=== PATIENT | female | born 1960 | race Caucasian/White ===

== ENCOUNTER 2016-06-28 18:35 | Observation (INO) | payer OTHER ==
--- NOTE | ~2016-06-28 | HP ---
History And Physical [facility] [address] [place]. [address] NAME: ART CANDELARIO : 62 STATUS : ADM IN [facility]#: [id number] AGE: 56 ADM/REG DATE : 06/28/16 MR#: [id number] REPORT SERV DATE: 06/29/16 DICTATED BY: PAGE SONI III DATE: 06/29/16 REPORT STATUS : Draft TRANSCRIBED BY: NORMA DATE: 06/29/16 DATE OF ADMISSION: 06/28/2016 HISTORY OF PRESENT ILLNESS: Ms Art Candelario is a 56-year-old white female from [place], [place], admitted for evaluation of chest pain accompanied by palpitations and a 12-lead electrocardiogram suggesting anterolateral ischemia. The patient had been in her usual state of health until approximately two weeks prior to this admission. At that time, the patient noted the onset of dull substernal chest pains radiating to her upper extremities. The patient's chest pains have lasted up to 40 minutes in duration. The patient's chest pains have been accompanied by diaphoresis and palpitations. The patient denied any associated dyspnea, nausea, or vomiting. The patient denied precipitating factors. Specifically, the patient denied relation to exertion, emotional upset, oral intake, positional change, and respiration. The patient denied relief with aspirin. The patient denied trying antacids and a heating pad. The patient has no history of migraine headaches or symptoms suggestive of Raynaud's phenomenon. The patient's chest pains have occurred at rest. The patient was subsequently seen in the [facility] emergency room on 06/28/2016. The patient's troponin I level was less than 0.02. A 12-lead electrocardiogram demonstrated sinus rhythm with anterolateral ST-segment and T-wave inversion suggestive of ischemia. The patient was subsequently admitted for further evaluation. The patient denied dyspnea on exertion, orthopnea, paroxysmal nocturnal dyspnea, platypnea, trepopnea, sacral edema, pedal edema, and syncope. The patient has no history of rheumatic fever or cardiac murmur. The patient denied hip and lower extremity claudication. The patient's documented coronary artery disease risk factors include obesity, hyperlipoproteinemia, and hypertension. PAST MEDICAL HISTORY: 1. Obesity. 2. Hyperlipoproteinemia. 3. Hypertension. 4. Colon cancer, 2008. 5. Nephrolithiasis. PROCEDURES: 1. Status post partial colectomy, 2010. 2. Status post bilateral tubal ligation. 3. Status post OD cataract extraction with an intra-ocular lens implant. ALLERGIES: NONE. INTOLERANCES: Dilaudid. MEDICATIONS: None. FAMILY HISTORY: Positive for diabetes mellitus, kidney disease, and cancer (lung, colon). History And Physical [address] [address] NAME: ART CANDELARIO : 62 STATUS : ADM IN PAT#: [id number] AGE: 56 ADM/REG DATE : 06/28/16 MR#: [id number] REPORT SERV DATE: 06/29/16 DICTATED BY: PAGE SONI III DATE: 06/29/16 REPORT STATUS : Draft TRANSCRIBED BY: NORMA DATE: 06/29/16 Negative for myocardial infarction, hypertension, stroke, seizures, liver disease, anemia, arthritis, and mental illness. SOCIAL HISTORY: The patient denied any history of alcohol or tobacco use. PHYSICAL EXAMINATION: GENERAL: Demonstrated an alert, obese, older white female, in no acute distress. VITAL SIGNS: Demonstrated that she was afebrile to touch, respiratory rate was 18 breaths per minute, and blood pressure was 89/51 mmHg, with a heart rate of 70 beats per minute. SKIN: Warm and dry. There were diffuse nonpigmented abdominal striae. There was a well- healed midline infraumbilical abdominal surgical scar. NECK: Supple and nontender. There was decreased range of motion. There was no appreciable lymphadenopathy or thyromegaly. There was no jugular venous distention at 90 degrees. There were no carotid bruits. BACK: Examination of the back demonstrated no spinal or costovertebral angle tenderness. CHEST: Examination of the chest demonstrated right basilar inspiratory crackles. There were no rhonchi, wheezes, or pleural rubs. There was symmetrical expansion of the chest. There was no use of the accessary muscles respiration. CARDIAC: Cardiac examination demonstrated a nonpalpable apical impulse. There was a regular rhythm and rate without murmur, rub, gallop, or mid systolic click. There were no thrills or heaves. There was no hepatojugular reflux. ABDOMEN: Examination of the abdomen demonstrated that it was obese, soft, and protuberant. There was no appreciable hepatosplenomegaly or masses. Bowel sounds were intact. There were no abdominal or femoral bruits. Extremities: Examination of the extremities demonstrated that they were symmetrical. There was decreased range of motion. There was no cyanosis, clubbing, or edema. Pulses were 2+ and equal at the radial, femoral, and dorsalis pedis arteries. The posterior tibial pulses were 1+ and equal. ASSESSMENT: Ms Art Candelario is a 56-year-old white female with three other risk factors for coronary atherosclerotic disease (i.e., obesity, hyperlipoproteinemia, hypertension), and no prior cardiac history; who now presents with recent onset atypical chest pain accompanied by palpitations and a 12-lead electrocardiogram suggesting anterolateral ischemia. The patient is admitted for cardiac catheterization and consideration of revascularization. Options, potential risks and benefits of the procedure were discussed with the patient. The patient accepted these risks and wished to proceed. /NORMA Page Soni III, M.D., [facility], [facility] / [id number] CC: History And Physical [address] [address] NAME: ART CANDELARIO : 62 STATUS : ADM IN [facility]#: [id number] AGE: 56 ADM/REG DATE : 06/28/16 MR#: [id number] REPORT SERV DATE: 06/29/16 DICTATED BY: PAGE SONI III DATE: 06/29/16 REPORT STATUS : Draft TRANSCRIBED BY: MODL DATE: 06/29/16 Page Soni III, M.D., [facility], [facility]
[2016-06-28 13:49] LABS: BASOPHILS 0.5 %; BASOPHILS ABSOLUTE 0.03 10/3/uL (0.0-0.16); EOSINOPHILS 1.6 %; ER CBC TAT 0 Hrs 03 Mins; HEMOGLOBIN 15.3 g/dL (12.0-16.0); IMMATURE GRANULOCYTES 0.2 %; IMMATURE GRANULOCYTES ABSOLUTE 0.01 10/3/uL (0.0-0.11); LYMPHOCYTES 36.7 %; LYMPHOCYTES ABSOLUTE 2.34 10/3/uL (0.67-4.30); MANUAL DIFF NO %; MEAN CORPUS HGB CONC 34.8 g/dL (32.0-36.0); MEAN CORPUSCULAR HEMOGLOB 31.9 pg (26.0-34.0); MEAN CORPUSCULAR VOLUME 91.7 fL (80-100); MEAN PLATELET VOLUME 9.4 fL (9.2-13.0); MONOCYTES 8.5 %; MONOCYTES ABSOLUTE 0.54 10/3/uL (0.21-1.20); NEUTROPHILS 52.5 %; NEUTROPHILS ABSOLUTE 3.36 10/3/uL (2.02-8.40); PLATELET COUNT 250 10/3/uL (150-400); RBC DISTRIBUTION WIDTH 12.5 % (12.0-16.0); WHITE BLOOD CELLS 6.4 10/3/uL (4.5-10.5)
[2016-06-28 13:57] LABS: INTERNATIONAL NORMAL RATI 1.1 UNITS (-); PARTIAL THROMBO TIME 28.2 SEC (22.5-37.2); PROTIME (NOT ORD) 13.8 SEC (12.0-14.5)
[2016-06-28 14:04] LABS: BUN (BLOOD UREA NITROGEN) 10 MG/DL (6-23); CALCIUM, SERUM 9.6 MG/DL (8.5-10.4); CHEST PAIN PROFILE TAT 0 Hrs 18 Mins; CHLORIDE, SERUM 107 MMOL/L (96-112); CO2 (CARBON DIOXIDE) 28 MMOL/L (24-34); GFR AFRICAN AMERICAN 96 ML/MIN (>=60); GFR NON AFRICAN AMERICAN 83 ML/MIN (>=60); GLUCOSE, SERUM 111 MG/DL (60-99); POTASSIUM, SERUM 3.8 MMOL/L (3.5-5.3); SODIUM, SERUM 142 MMOL/L (135-148); TROPONIN I <0.02 NG/ML (<0.05)
[2016-06-28] MEDS ORDERED: ASA5GR PO (20:23)
[2016-06-28] MEDS ORDERED: MULTIVITAMI1 PO (20:24)
[2016-06-29 03:04] LABS: BASOPHILS 0.4 %; BASOPHILS ABSOLUTE 0.03 10/3/uL (0.0-0.16); EOSINOPHILS 1.9 %; EOSINOPHILS ABSOLUTE 0.13 10/3/uL (0.0-0.53); HEMATOCRIT 41.8 % (36.0-48.0); LYMPHOCYTES 47.7 %; LYMPHOCYTES ABSOLUTE 3.24 10/3/uL (0.67-4.30); MEAN CORPUS HGB CONC 33.5 g/dL (32.0-36.0); MEAN CORPUSCULAR HEMOGLOB 31.9 pg (26.0-34.0); MEAN PLATELET VOLUME 9.5 fL (9.2-13.0); MONOCYTES 6.8 %; MONOCYTES ABSOLUTE 0.46 10/3/uL (0.21-1.20); NEUTROPHILS 43.2 %; NEUTROPHILS ABSOLUTE 2.93 10/3/uL (2.02-8.40); PLATELET COUNT 221 10/3/uL (150-400); RBC DISTRIBUTION WIDTH 12.4 % (12.0-16.0); RED CELL COUNT 4.39 10/6/uL (4.0-5.6); WHITE BLOOD CELLS 6.8 10/3/uL (4.5-10.5)
[2016-06-29 03:05] LABS: MANUAL DIFF NO %; MEAN CORPUSCULAR VOLUME 95.2 fL (80-100)
[2016-06-29 03:20] LABS: CHOL/HDL RATIO(NOT ORDER) 3.7 (0-5)
[2016-06-29 13:51] LABS: BUN (BLOOD UREA NITROGEN) 12 MG/DL (6-23); CALCIUM, SERUM 9.4 MG/DL (8.5-10.4); CHLORIDE, SERUM 109 MMOL/L (96-112); CREATININE 0.61 MG/DL (0.55-1.02); GFR AFRICAN AMERICAN 118 ML/MIN (>=60); GFR NON AFRICAN AMERICAN 102 ML/MIN (>=60); GLUCOSE, SERUM 92 MG/DL (60-99); POTASSIUM, SERUM 3.9 MMOL/L (3.5-5.3); SODIUM, SERUM 142 MMOL/L (135-148)
[2016-06-29 13:52] LABS: CO2 (CARBON DIOXIDE) 23 MMOL/L (24-34)
== END 2016-06-29 20:20 | disposition home or self-care (01) ==
LOC: ER 18:35 → 5NO 20:46
PROVIDERS: Emergency Medicine; Internal Medicine Cardiovascular Disease
DX: I20.0 Unstable angina (principal); E66.9 Obesity, unspecified; E78.5 Hyperlipidemia, unspecified; I10 Essential (primary) hypertension; E78.00 Pure hypercholesterolemia, unspecified; Z85.038 Personal history of other malignant neoplasm of large intestine; Z87.442 Personal history of urinary calculi; Z98.51 Tubal ligation status; Z88.5 Allergy status to narcotic agent
CPT/HCPCS: 71020; 80048; 80061; 83735; 84460; 84484; 84703; 85025; 85610; 85730; 93005; 93458; 96372; 96374; 99285; A9270-GY; C1760; C1769; C1894; G0378; J2250; J2405; J3010; Q9967